=== PATIENT | male | born 1990 | race Caucasian/White ===

== ENCOUNTER 2016-11-21 20:23 | Inpatient (IN) | payer SELFPAY ==
[~2016-11-21] VITALS: Ht 165.1 cm; Wt 86.8 kg
[~2016-11-21 20:23] MED LIST: BENZ1TAB70 PO; ETOMIDATE 2 MG/ML 10 ML VIAL IV ONE; RISP2 PO; SUCCINYLCHOLINE CHLORIDE 20 MG/ML 10 ML VIAL IM ONE
[2016-11-21 21:02] LABS: GLUCOSE,POINT OF CARE 120 MG/DL (70-110)
[2016-11-21] MEDS ORDERED: SODIUM CHLORIDE 0.9% 1,000 ML IV ONE ×2 (21:15→22:45)
[2016-11-21 22:03] LABS: BASOPHILS % (AUTO) 0.4 % (0.0-2.0); EOSINOPHILS % (AUTO) 1.1 % (1.0-6.0); HEMATOCRIT 38.5 % (41-53); LYMPHOCYTES # (AUTO) 1.7 K/uL (1.0-4.8); LYMPHOCYTES % (AUTO) 28.6 % (22.0-44.0); MEAN CORPUSCULAR HEMOGLOBIN 30.3 pg (26.0-34.0); MEAN CORPUSCULAR HGB CONC 33.8 G/dL (31.0-37.0); MEAN CORPUSCULAR VOLUME 89 fL (80-100); MONOCYTES # (AUTO) 0.4 K/uL (0.1-1.0); MONOCYTES % (AUTO) 7.1 % (2.0-9.0); NEUTROPHILS # (AUTO) 3.8 K/uL (1.8-7.7); NEUTROPHILS % (AUTO) 62.8 % (40.0-70.0); PLATELET COUNT (AUTO) 183 K/uL (150-450); RED CELL DISTRIBUTION WIDTH 14.5 % (11.5-14.5); WHITE BLOOD COUNT (AUTO) 6.1 K/uL (4.5-11.0)
[2016-11-21 22:08] LABS: GLUCOSE, URINE (UA) NEGATIVE (NEGATIVE); KETONES,URINE NEGATIVE (NEGATIVE); LEUKOCYTE ESTERASE ,URINE NEGATIVE (NEGATIVE); OCCULT BLOOD,URINE NEGATIVE (NEGATIVE); PH,URINE 7.5 (5.0-8.0); PROTEIN,URINE TRACE (NEGATIVE)
[2016-11-21 22:12] LABS: ADD UA MICROSCOPIC NO; APPEARANCE,URINE SLIGHTLY CLOUDY (CLEAR)
[2016-11-21 22:14] LABS: ANION GAP 9 mmol/L (8-16); CALCIUM, TOTAL 8.5 mg/dL (8.8-10.5); CARBON DIOXIDE 25 mmol/L (22-29); CHLORIDE 109 mmol/L (98-107); CREATININE 0.82 mg/dL (0.60-1.30); GLOMERULAR FILTR. RATE CALC > 60 mL/min (>60); POTASSIUM 3.3 mmol/L (3.5-5.1); SODIUM SERUM 143 mmol/L (136-145); UREA NITROGEN, BLOOD 13 mg/dL (7-18)
[2016-11-21 22:19] LABS: ALANINE AMINOTRANSFERASE 23 U/L (12-78); ALBUMIN 3.5 g/dL (3.4-5.0); ASPARTATE AMINOTRANSFERASE 15 U/L (15-37); BILIRUBIN,TOTAL 0.4 mg/dL (0.1-1.0)
[2016-11-21 22:20] LABS: ACETAMINOPHEN < 2 mcg/mL (10-30)
[2016-11-21 22:21] LABS: AMMONIA 29 umol/L (11-32)
[2016-11-21 22:22] LABS: TROPONIN I < 0.02 ng/mL (0.00-0.05)
[2016-11-21 22:23] LABS: SALICYLATE < 2.8 mg/dL (2.8-20.0)
[2016-11-21] MEDS ORDERED: LORazepam 2 MG/ML VIAL IVP ONE ×2 (22:30→23:15)
[2016-11-21] MEDS ORDERED: RAPID SEQUENCE KIT [RSI] 1 EACH KIT ONE ×2 (22:36)
[2016-11-21] MEDS ORDERED: PHENYTOIN SODIUM 1,000 MG in SODIUM CHLORIDE 0.9% 150 ML IV ONE (22:45)
[2016-11-21] MEDS ORDERED: ETOMIDATE 2 MG/ML 10 ML VIAL IVP ONE (22:45)
[2016-11-21] MEDS ORDERED: SUCCINYLCHOLINE CHLORIDE 20 MG/ML 10 ML VIAL IVP ONE (22:45)
[2016-11-21] MEDS ORDERED: PROPOFOL 1000 MG/ISO-OSM 100 ML IV PRN (22:48)
[2016-11-21] MEDS ORDERED: 0.9% SODIUM CHLORIDE 10 ML SYRINGE IVP PRN (23:00)
[2016-11-21] MEDS ORDERED: ACETAMINOPHEN 325 MG TABLET PO PRN (23:00)
[2016-11-21] MEDS ORDERED: DiphenhydrAMINE HCL 50 MG/ML VIAL IVP ONE ×2 (23:00)
[2016-11-21] MEDS ORDERED: LevETIRAcetam 1,000 MG in DEXTROSE 5%-WATER 100 ML IV ONE (23:15)
[2016-11-21] MEDS ORDERED: MIDAZOLAM HCL 100 MG in DEXTROSE 5%-WATER 180 ML IV PRN (23:24)
[2016-11-21 23:29] LABS: ABG A-A DIFF O2 227.2 mmHg (10-20.0); ABG BASE EXCESS -2.2 mmol/L (-2.0-3.0); ABG OXYHEMOGLOBIN 95.6 % (94.0-100.0); ABG PCO2 35 mmHg (35-45); ABG PH 7.419 (7.350-7.450); TEMPERATURE, FAHRENHEIT, BG 97.3 FAHREN (96.0-98.6)
[2016-11-21 23:30] LABS: ALLEN TEST, BLOOD GAS POSITIVE
[2016-11-22] VITALS (10 sets, daily range): BP systolic 91–161; BP diastolic 47–78
[2016-11-22] MEDS ORDERED: OxyCODONE HCL/ACETAMINOPHEN 5-325 MG TABLET PO PRN
[2016-11-22] MEDS ORDERED: IPRATROPIUM BROMIDE 0.5 MG/2.5 ML NEB SOLUTION NEB PRN
[2016-11-22] MEDS ORDERED: ONDANSETRON HCL 4 MG/2 ML VIAL IVP PRN
[2016-11-22] MEDS ORDERED: ALBUTEROL SULFATE 2.5 MG/0.5 ML NEB SOLUTION NEB PRN
[2016-11-22] MEDS ORDERED: BISACODYL 10 MG RECTAL RECTAL SUPPOSITORY PR PRN
[2016-11-22] MEDS ORDERED: MAGNESIUM HYDROXIDE SUSPENSION 30 ML UDCUP PO PRN
[2016-11-22] MEDS: ACETAMINOPHEN 325 MG TABLET PO PRN ×2 (02:08→14:54)
[2016-11-22] MEDS: DEXTROSE 5%-0.45% SODIUM CHL 1,000 ML IV SCH ×2 (02:08→08:12)
[2016-11-22] MEDS ORDERED: MIDAZOLAM HCL 100 MG in DEXTROSE 5%-WATER 180 ML IV PRN (04:00)
[2016-11-22 05:08] LABS: ALANINE AMINOTRANSFERASE 21 U/L (12-78); ALBUMIN 3.2 g/dL (3.4-5.0); ANION GAP 11 mmol/L (8-16); ASPARTATE AMINOTRANSFERASE 23 U/L (15-37); BILIRUBIN,TOTAL 0.6 mg/dL (0.1-1.0); CALCIUM, TOTAL 7.9 mg/dL (8.8-10.5); CARBON DIOXIDE 25 mmol/L (22-29); CHLORIDE 109 mmol/L (98-107); CREATININE 0.88 mg/dL (0.60-1.30); GLOMERULAR FILTR. RATE CALC > 60 mL/min (>60); PHOSPHORUS 2.1 mg/dL (2.5-4.9); SODIUM SERUM 145 mmol/L (136-145); TOTAL PROTEIN, SERUM 6.5 g/dL (6.4-8.2); UREA NITROGEN, BLOOD 9 mg/dL (7-18)
[2016-11-22] MEDS ORDERED: VANCOMYCIN HCL 1 GM/D5% WATER 200 ML IV SCH (05:30)
[2016-11-22] MEDS ORDERED: VANCOMYCIN HCL 1 GM/D5% WATER 200 ML IV ONE (06:00)
[2016-11-22] MEDS: PROPOFOL 1000 MG/ISO-OSM 100 ML IV PRN ×6 (06:03→23:11)
[2016-11-22 06:14] LABS: BASOPHILS % (AUTO) 0.2 % (0.0-2.0); EOSINOPHILS % (AUTO) 0.4 % (1.0-6.0); HEMATOCRIT 37.7 % (41-53); HEMOGLOBIN 12.8 g/dL (13.5-17.5); LYMPHOCYTES % (AUTO) 15.9 % (22.0-44.0); MEAN CORPUSCULAR HEMOGLOBIN 30.2 pg (26.0-34.0); MEAN CORPUSCULAR HGB CONC 33.9 G/dL (31.0-37.0); MEAN CORPUSCULAR VOLUME 89 fL (80-100); MONOCYTES # (AUTO) 0.5 K/uL (0.1-1.0); MONOCYTES % (AUTO) 8.8 % (2.0-9.0); NEUTROPHILS # (AUTO) 4.6 K/uL (1.8-7.7); NEUTROPHILS % (AUTO) 74.7 % (40.0-70.0); PLATELET COUNT (AUTO) 138 K/uL (150-450); RED BLOOD CELL COUNT(AUTO) 4.23 MIL/uL (4.50-5.90); RED CELL DISTRIBUTION WIDTH 14.9 % (11.5-14.5); WHITE BLOOD COUNT (AUTO) 6.2 K/uL (4.5-11.0)
[2016-11-22] MEDS: PANTOPRAZOLE SODIUM 40 MG/VIAL IVP SCH (08:12)
[2016-11-22] MEDS: HEPARIN SODIUM,PORCINE 5,000 UNITS/ML VIAL SQ SCH ×2 (08:12→21:17)
[2016-11-22] MEDS ORDERED: VANCOMYCIN HCL 750 MG in DEXTROSE 5%-WATER 150 ML IV ONE ×2 (09:00→10:00)
[2016-11-22] MEDS ORDERED: POTASSIUM PHOS,M-BASIC-D-BASIC 30 MEQ in DEXTROSE 5%-WATER 150 ML IV ONE (11:00)
[2016-11-22] MEDS ORDERED: MAGNESIUM SULFATE 2 GM in DEXTROSE 5%-WATER 50 ML IV PRN (11:00)
[2016-11-22] MEDS ORDERED: MAGNESIUM SULFATE 4 GM/WATER 100 ML IV PRN (11:00)
[2016-11-22 11:17] LABS: ABG A-A DIFF O2 89.9 mmHg (10-20.0); ABG HCO3 22.8 mmol/L (22.0-26.0); ABG OXYHEMOGLOBIN 96.6 % (94.0-100.0); ABG PCO2 31 mmHg (35-45); TEMPERATURE, FAHRENHEIT, BG 97.5 FAHREN (96.0-98.6)
[2016-11-22 11:22] LABS: ALLEN TEST, BLOOD GAS Positive
[2016-11-22] MEDS ORDERED: SODIUM CHLORIDE 0.9% 250 ML IV ONE (11:51)
[2016-11-22] MEDS: MAGNESIUM OXIDE 400 MG TABLET PO PRN ×3 (11:53→21:17)
[2016-11-22] MEDS: MORPHINE SULFATE 2 MG/ML SYRINGE IVP PRN (13:56)
[2016-11-22] MEDS: AMPICILLIN SODIUM/SULBACTAM NA 3 GM in SODIUM CHLORIDE 0.9% 100 ML IV SCH ×2 (13:56→17:59)
[2016-11-22] MEDS: AZITHROMYCIN 500 MG/NS 250 ML IV SCH (14:54)
[2016-11-22] MEDS: VANCOMYCIN HCL 1.5 GM in DEXTROSE 5%-WATER 250 ML IV SCH (16:34)
[2016-11-22] MEDS: MetroNIDAZOLE 500 MG/NACL 100 ML IV SCH (22:36)
[2016-11-23] VITALS (8 sets, daily range): BP systolic 90–199; BP diastolic 48–62
[2016-11-23] MEDS: CefTRIAXone SODIUM 2 GM in DEXTROSE 5%-WATER 50 ML IV SCH ×2 (00:29→13:32)
[2016-11-23] MEDS: VANCOMYCIN HCL 1.5 GM in DEXTROSE 5%-WATER 250 ML IV SCH ×3 (00:30→16:05)
[2016-11-23] MEDS: PROPOFOL 1000 MG/ISO-OSM 100 ML IV PRN ×7 (01:40→22:00)
[2016-11-23] MEDS: ACETAMINOPHEN 325 MG TABLET PO PRN ×2 (02:06→20:21)
[2016-11-23] MEDS: DEXTROSE 5%-0.45% SODIUM CHL 1,000 ML IV SCH ×2 (04:04→13:50)
[2016-11-23 04:54] LABS: BASOPHILS % (AUTO) 0.2 % (0.0-2.0); EOSINOPHILS % (AUTO) 1.2 % (1.0-6.0); HEMATOCRIT 35.2 % (41-53); HEMOGLOBIN 11.9 g/dL (13.5-17.5); LYMPHOCYTES # (AUTO) 0.9 K/uL (1.0-4.8); MEAN CORPUSCULAR HEMOGLOBIN 30.2 pg (26.0-34.0); MEAN CORPUSCULAR HGB CONC 33.7 G/dL (31.0-37.0); MEAN CORPUSCULAR VOLUME 90 fL (80-100); MONOCYTES # (AUTO) 0.4 K/uL (0.1-1.0); MONOCYTES % (AUTO) 4.8 % (2.0-9.0); NEUTROPHILS # (AUTO) 6.9 K/uL (1.8-7.7); NEUTROPHILS % (AUTO) 82.8 % (40.0-70.0); PLATELET COUNT (AUTO) 151 K/uL (150-450); RED BLOOD CELL COUNT(AUTO) 3.92 MIL/uL (4.50-5.90); RED CELL DISTRIBUTION WIDTH 14.5 % (11.5-14.5); WHITE BLOOD COUNT (AUTO) 8.4 K/uL (4.5-11.0)
[2016-11-23] MEDS: MetroNIDAZOLE 500 MG/NACL 100 ML IV SCH ×3 (05:15→22:45)
[2016-11-23 05:17] LABS: ALANINE AMINOTRANSFERASE 14 U/L (12-78); ALBUMIN 2.5 g/dL (3.4-5.0); ANION GAP 8 mmol/L (8-16); ASPARTATE AMINOTRANSFERASE 18 U/L (15-37); BILIRUBIN,TOTAL 0.4 mg/dL (0.1-1.0); CALCIUM, TOTAL 7.5 mg/dL (8.8-10.5); CARBON DIOXIDE 25 mmol/L (22-29); CHLORIDE 108 mmol/L (98-107); CREATININE 0.73 mg/dL (0.60-1.30); GLOMERULAR FILTR. RATE CALC > 60 mL/min (>60); PHOSPHORUS 2.8 mg/dL (2.5-4.9); SODIUM SERUM 141 mmol/L (136-145); TOTAL PROTEIN, SERUM 5.8 g/dL (6.4-8.2); UREA NITROGEN, BLOOD 6 mg/dL (7-18)
[2016-11-23 05:21] LABS: POTASSIUM 2.9 mmol/L (3.5-5.1)
[2016-11-23 05:24] LABS: PROCALCITONIN (PCT) 0.22 ng/mL (<0.50)
[2016-11-23] MEDS: OXYGEN THERAPY IH SCH ×2 (08:00→20:20)
[2016-11-23] MEDS: HEPARIN SODIUM,PORCINE 5,000 UNITS/ML VIAL SQ SCH ×2 (08:31→20:21)
[2016-11-23] MEDS: PANTOPRAZOLE SODIUM 40 MG/VIAL IVP SCH (08:32)
[2016-11-23] MEDS: POTASSIUM CHLORIDE 20 MEQ ER TABLET PO PRN (08:32)
[2016-11-23 09:45] LABS: ABG A-A DIFF O2 110.8 mmHg (10-20.0); ABG PCO2 31 mmHg (35-45); ABG PH 7.435 (7.350-7.450); TEMPERATURE, FAHRENHEIT, BG 98.6 FAHREN (96.0-98.6)
[2016-11-23 09:47] LABS: ALLEN TEST, BLOOD GAS Positive
[2016-11-23] MEDS: LevETIRAcetam 500 MG in DEXTROSE 5%-WATER 100 ML IV SCH ×2 (11:40→21:48)
[2016-11-23] MEDS: ACYCLOVIR 800 MG in DEXTROSE 5%-WATER 150 ML IV SCH ×2 (11:58→18:22)
[2016-11-23] MEDS: AZITHROMYCIN 500 MG/NS 250 ML IV SCH (13:49)
[2016-11-23] MEDS ORDERED: LIDOCAINE HCL/PF 1% 5 ML VIAL ONE (16:31)
[2016-11-23] MEDS: POTASSIUM CHL 10 MEQ/WATER 50 ML IV PRN ×2 (19:49→21:12)
[2016-11-23 20:15] LABS: GLUCOSE, CSF 63 mg/dL (50-80); TOTAL PROTEIN, CSF 29 mg/dL (15-45)
[2016-11-23] MEDS ORDERED: SODIUM CHLORIDE 0.9% 250 ML IV ONE (20:18)
[2016-11-23 21:28] LABS: APPEARANCE,CSF CLEAR (CLEAR); COLOR,CSF COLORLESS (COLORLESS)
[2016-11-24] VITALS: BP 103/51
[2016-11-24] MEDS: POTASSIUM CHL 10 MEQ/WATER 50 ML IV PRN (00:07)
[2016-11-24] MEDS: DEXTROSE 5%-0.45% SODIUM CHL 1,000 ML IV SCH ×3 (00:07→20:38)
[2016-11-24] MEDS: PROPOFOL 1000 MG/ISO-OSM 100 ML IV PRN ×6 (00:45→20:45)
[2016-11-24 04:00] VITALS: BP 114/79
[2016-11-24] MEDS: MetroNIDAZOLE 500 MG/NACL 100 ML IV SCH ×3 (05:12→22:47)
[2016-11-24 05:32] LABS: ANION GAP 9 mmol/L (8-16); CALCIUM, TOTAL 8.2 mg/dL (8.8-10.5); CARBON DIOXIDE 23 mmol/L (22-29); CHLORIDE 111 mmol/L (98-107); CREATININE 0.84 mg/dL (0.60-1.30); GLOMERULAR FILTR. RATE CALC > 60 mL/min (>60); POTASSIUM 4.2 mmol/L (3.5-5.1); SODIUM SERUM 143 mmol/L (136-145); UREA NITROGEN, BLOOD 4 mg/dL (7-18)
[2016-11-24 05:39] LABS: BASOPHILS % (AUTO) 0.2 % (0.0-2.0); EOSINOPHILS % (AUTO) 0.7 % (1.0-6.0); HEMATOCRIT 37.9 % (41-53); HEMOGLOBIN 12.8 g/dL (13.5-17.5); LYMPHOCYTES # (AUTO) 2.7 K/uL (1.0-4.8); LYMPHOCYTES % (AUTO) 25.5 % (22.0-44.0); MEAN CORPUSCULAR HEMOGLOBIN 30.4 pg (26.0-34.0); MEAN CORPUSCULAR HGB CONC 33.8 G/dL (31.0-37.0); MEAN CORPUSCULAR VOLUME 90 fL (80-100); MONOCYTES # (AUTO) 0.8 K/uL (0.1-1.0); MONOCYTES % (AUTO) 7.4 % (2.0-9.0); NEUTROPHILS # (AUTO) 6.9 K/uL (1.8-7.7); NEUTROPHILS % (AUTO) 66.2 % (40.0-70.0); PLATELET COUNT (AUTO) 145 K/uL (150-450); RED BLOOD CELL COUNT(AUTO) 4.22 MIL/uL (4.50-5.90); RED CELL DISTRIBUTION WIDTH 15.1 % (11.5-14.5); WHITE BLOOD COUNT (AUTO) 10.4 K/uL (4.5-11.0)
[2016-11-24 08:00] VITALS: BP 106/66
[2016-11-24] MEDS ORDERED: VANCOMYCIN HCL 1.5 GM in DEXTROSE 5%-WATER 250 ML IV SCH (08:00)
[2016-11-24] MEDS: PANTOPRAZOLE SODIUM 40 MG/VIAL IVP SCH (08:36)
[2016-11-24] MEDS: HEPARIN SODIUM,PORCINE 5,000 UNITS/ML VIAL SQ SCH ×2 (08:36→20:38)
[2016-11-24] MEDS: LevETIRAcetam 500 MG in DEXTROSE 5%-WATER 100 ML IV SCH ×2 (08:37→20:39)
[2016-11-24] MEDS: ACETAMINOPHEN 325 MG TABLET PO PRN ×2 (08:37→20:41)
[2016-11-24 09:14] LABS: ABG A-A DIFF O2 64.7 mmHg (10-20.0); ABG BASE EXCESS -3.4 mmol/L (-2.0-3.0); ABG HCO3 22.5 mmol/L (22.0-26.0); ABG PCO2 31 mmHg (35-45); ABG PH 7.437 (7.350-7.450); TEMPERATURE, FAHRENHEIT, BG 100.4 FAHREN (96.0-98.6)
[2016-11-24 09:15] LABS: ALLEN TEST, BLOOD GAS Positive
[2016-11-24 11:09] LABS: ORGANISM ID Not indicated.
[2016-11-24 12:00] VITALS: BP 132/77
[2016-11-24] MEDS: CefTRIAXone 1 GM/DEXTROSE 50 ML IV SCH (12:06)
[2016-11-24] MEDS: AZITHROMYCIN 500 MG/NS 250 ML IV SCH (12:49)
[2016-11-24] MEDS: VANCOMYCIN HCL 1.25 GM in DEXTROSE 5%-WATER 250 ML IV SCH (15:30)
[2016-11-24 16:00] VITALS: BP 106/58
[2016-11-24 20:00] VITALS: BP 122/69
[2016-11-24] MEDS ORDERED: SODIUM CHLORIDE 0.9% 250 ML IV ONE (20:06)
[2016-11-24] MEDS: OXYGEN THERAPY IH SCH (20:37)
[2016-11-24] MEDS ORDERED: BARIUM SULFATE 0.1% SUSPENSION 450 ML BOTTLE ONE (21:57)
[2016-11-24] MEDS ORDERED: SODIUM CHLORIDE 0.9% 100 ML ONE (21:58)
[2016-11-24] MEDS ORDERED: IOVERSOL 320 MG/ML 100 ML VIAL ONE (21:58)
[2016-11-25] VITALS (8 sets, daily range): BP systolic 103–146; BP diastolic 50–95
[2016-11-25] MEDS: PROPOFOL 1000 MG/ISO-OSM 100 ML IV PRN ×4 (00:55→19:45)
[2016-11-25] MEDS: VANCOMYCIN HCL 1.25 GM in DEXTROSE 5%-WATER 250 ML IV SCH ×3 (00:55→17:40)
[2016-11-25] MEDS: MetroNIDAZOLE 500 MG/NACL 100 ML IV SCH ×3 (05:10→22:30)
[2016-11-25] MEDS: ACETAMINOPHEN 325 MG TABLET PO PRN (05:11)
[2016-11-25] MEDS: DEXTROSE 5%-0.45% SODIUM CHL 1,000 ML IV SCH ×2 (05:36→18:42)
[2016-11-25 06:23] LABS: ANION GAP 10 mmol/L (8-16); CALCIUM, TOTAL 8.7 mg/dL (8.8-10.5); CARBON DIOXIDE 23 mmol/L (22-29); CHLORIDE 109 mmol/L (98-107); GLOMERULAR FILTR. RATE CALC > 60 mL/min (>60); POTASSIUM 3.1 mmol/L (3.5-5.1); SODIUM SERUM 142 mmol/L (136-145); UREA NITROGEN, BLOOD 3 mg/dL (7-18)
[2016-11-25] MEDS: POTASSIUM CHLORIDE 20 MEQ ER TABLET PO PRN (07:00)
[2016-11-25] MEDS: OXYGEN THERAPY IH SCH ×2 (08:15→20:07)
[2016-11-25 08:39] LABS: ABG BASE EXCESS -3.8 mmol/L (-2.0-3.0); ABG HCO3 21.8 mmol/L (22.0-26.0); ABG OXYHEMOGLOBIN 95.7 % (94.0-100.0); ABG PCO2 37 mmHg (35-45); ABG PH 7.378 (7.350-7.450); TEMPERATURE, FAHRENHEIT, BG 98.6 FAHREN (96.0-98.6)
[2016-11-25 08:42] LABS: ALLEN TEST, BLOOD GAS Positive
[2016-11-25] MEDS: PANTOPRAZOLE SODIUM 40 MG/VIAL IVP SCH (09:51)
[2016-11-25] MEDS: HEPARIN SODIUM,PORCINE 5,000 UNITS/ML VIAL SQ SCH ×2 (09:51→22:29)
[2016-11-25] MEDS: LevETIRAcetam 500 MG in DEXTROSE 5%-WATER 100 ML IV SCH ×2 (09:54→22:29)
[2016-11-25] MEDS: CefTRIAXone 1 GM/DEXTROSE 50 ML IV SCH (12:25)
[2016-11-25] MEDS: AZITHROMYCIN 500 MG/NS 250 ML IV SCH (12:25)
[2016-11-25] MEDS ORDERED: IOVERSOL 350 MG/ML 150 ML VIAL ONE (14:18)
[2016-11-25] MEDS ORDERED: SODIUM CHLORIDE 0.9% 100 ML ONE (14:18)
[2016-11-25] MEDS ORDERED: LORazepam 2 MG/ML VIAL IM ONE (14:30)
[2016-11-25] MEDS: MORPHINE SULFATE 2 MG/ML SYRINGE IVP PRN (19:57)
[2016-11-25] MEDS: LEVOFLOXACIN 750 MG/D5% WATER 150 ML IV SCH (20:09)
[2016-11-25] MEDS: POTASSIUM CHL 10 MEQ/WATER 50 ML IV PRN (23:36)
[2016-11-26] VITALS (8 sets, daily range): BP systolic 90–127; BP diastolic 41–73
[2016-11-26] MEDS: PROPOFOL 1000 MG/ISO-OSM 100 ML IV PRN ×3 (00:22→08:46)
[2016-11-26] MEDS: POTASSIUM CHL 10 MEQ/WATER 50 ML IV PRN ×3 (00:44→23:51)
[2016-11-26] MEDS: VANCOMYCIN HCL 1.25 GM in DEXTROSE 5%-WATER 250 ML IV SCH ×3 (00:47→15:57)
[2016-11-26] MEDS ORDERED: SODIUM CHLORIDE 0.9% 250 ML IV ONE ×3 (01:02→23:46)
[2016-11-26] MEDS: DEXTROSE 5%-0.45% SODIUM CHL 1,000 ML IV SCH (05:21)
[2016-11-26 05:29] LABS: BASOPHILS % (AUTO) 0.3 % (0.0-2.0); EOSINOPHILS % (AUTO) 3.9 % (1.0-6.0); HEMATOCRIT 33.1 % (41-53); HEMOGLOBIN 11.4 g/dL (13.5-17.5); LYMPHOCYTES # (AUTO) 1.6 K/uL (1.0-4.8); LYMPHOCYTES % (AUTO) 28.3 % (22.0-44.0); MEAN CORPUSCULAR HEMOGLOBIN 30.4 pg (26.0-34.0); MEAN CORPUSCULAR HGB CONC 34.4 G/dL (31.0-37.0); MEAN CORPUSCULAR VOLUME 88 fL (80-100); MONOCYTES # (AUTO) 0.6 K/uL (0.1-1.0); MONOCYTES % (AUTO) 11.1 % (2.0-9.0); NEUTROPHILS # (AUTO) 3.1 K/uL (1.8-7.7); NEUTROPHILS % (AUTO) 56.4 % (40.0-70.0); PLATELET COUNT (AUTO) 166 K/uL (150-450); RED BLOOD CELL COUNT(AUTO) 3.75 MIL/uL (4.50-5.90); RED CELL DISTRIBUTION WIDTH 14.2 % (11.5-14.5); WHITE BLOOD COUNT (AUTO) 5.5 K/uL (4.5-11.0)
[2016-11-26 06:11] LABS: ANION GAP 10 mmol/L (8-16); CALCIUM, TOTAL 8.2 mg/dL (8.8-10.5); CARBON DIOXIDE 22 mmol/L (22-29); CHLORIDE 108 mmol/L (98-107); CREATININE 0.67 mg/dL (0.60-1.30); GLOMERULAR FILTR. RATE CALC > 60 mL/min (>60); SODIUM SERUM 140 mmol/L (136-145); UREA NITROGEN, BLOOD 5 mg/dL (7-18)
[2016-11-26] MEDS: MetroNIDAZOLE 500 MG/NACL 100 ML IV SCH ×2 (06:12→14:22)
[2016-11-26] MEDS: MORPHINE SULFATE 2 MG/ML SYRINGE IVP PRN (06:13)
[2016-11-26] MEDS: HEPARIN SODIUM,PORCINE 5,000 UNITS/ML VIAL SQ SCH ×2 (08:46→20:31)
[2016-11-26] MEDS: OXYGEN THERAPY IH SCH ×2 (08:47→20:31)
[2016-11-26] MEDS: PANTOPRAZOLE SODIUM 40 MG/VIAL IVP SCH (08:48)
[2016-11-26 09:06] LABS: ABG A-A DIFF O2 77.5 mmHg (10-20.0); ABG BASE EXCESS 0.4 mmol/L (-2.0-3.0); ABG HCO3 25.2 mmol/L (22.0-26.0); ABG OXYHEMOGLOBIN 96.4 % (94.0-100.0); ABG PCO2 34 mmHg (35-45); ABG PH 7.474 (7.350-7.450)
[2016-11-26 09:08] LABS: ALLEN TEST, BLOOD GAS Positive
[2016-11-26] MEDS: LevETIRAcetam 500 MG in DEXTROSE 5%-WATER 100 ML IV SCH ×2 (09:17→22:53)
[2016-11-26] MEDS: POTASSIUM CHLORIDE 20 MEQ ER TABLET PO PRN (09:18)
[2016-11-26] MEDS: CefTRIAXone 1 GM/DEXTROSE 50 ML IV SCH (14:22)
[2016-11-26 17:10] LABS: ABG A-A DIFF O2 88.3 mmHg (10-20.0); ABG HCO3 24.7 mmol/L (22.0-26.0); ABG OXYHEMOGLOBIN 95.3 % (94.0-100.0); ABG PCO2 37 mmHg (35-45); ABG PH 7.435 (7.350-7.450); ALLEN TEST, BLOOD GAS Positive
[2016-11-26 19:13] LABS: ABG A-A DIFF O2 71.2 mmHg (10-20.0); ABG BASE EXCESS -0.2 mmol/L (-2.0-3.0); ABG HCO3 24.5 mmol/L (22.0-26.0); ABG OXYHEMOGLOBIN 96.5 % (94.0-100.0); ABG PCO2 36 mmHg (35-45); ABG PH 7.438 (7.350-7.450); TEMPERATURE, FAHRENHEIT, BG 97.9 FAHREN (96.0-98.6)
[2016-11-26 19:14] LABS: ALLEN TEST, BLOOD GAS Positive
[2016-11-26] MEDS: LEVOFLOXACIN 750 MG/D5% WATER 150 ML IV SCH (20:31)
[2016-11-26 23:09] LABS: HERPES SIMPLEX VIRUS-1 BY PCR Negative (Negative); HERPES SIMPLEX VIRUS-2 BY PCR Negative (Negative)
[2016-11-27] VITALS (8 sets, daily range): BP systolic 112–131; BP diastolic 58–72
[2016-11-27] MEDS: POTASSIUM CHL 10 MEQ/WATER 50 ML IV PRN ×2 (00:35→02:34)
[2016-11-27] MEDS: HEPARIN SODIUM,PORCINE 5,000 UNITS/ML VIAL SQ SCH ×2 (09:00→20:39)
[2016-11-27] MEDS: PANTOPRAZOLE SODIUM 40 MG/VIAL IVP SCH (09:00)
[2016-11-27] MEDS: LevETIRAcetam 500 MG in DEXTROSE 5%-WATER 100 ML IV SCH ×2 (09:15→20:40)
[2016-11-27] MEDS: CefTRIAXone 1 GM/DEXTROSE 50 ML IV SCH (13:00)
[2016-11-27] MEDS: POTASSIUM CHLORIDE 20 MEQ ER TABLET PO PRN (16:16)
[2016-11-27] MEDS: OXYGEN THERAPY IH SCH (20:00)
[2016-11-27] MEDS ORDERED: SODIUM CHLORIDE 0.9% 500 ML IV ONE (20:31)
[2016-11-27] MEDS: LEVOFLOXACIN 750 MG/D5% WATER 150 ML IV SCH (20:38)
[2016-11-28 03:30] VITALS: BP 103/62
[2016-11-28 07:50] VITALS: BP 112/54
[2016-11-28] MEDS: OXYGEN THERAPY IH SCH (08:00)
[2016-11-28] MEDS: PANTOPRAZOLE SODIUM 40 MG/VIAL IVP SCH (08:16)
[2016-11-28] MEDS: LevETIRAcetam 500 MG in DEXTROSE 5%-WATER 100 ML IV SCH (08:17)
[2016-11-28] MEDS: HEPARIN SODIUM,PORCINE 5,000 UNITS/ML VIAL SQ SCH (08:17)
[2016-11-28 11:30] VITALS: BP 123/65
== END 2016-11-28 13:24 | disposition left against medical advice (07) | DRG 870 ==
LOC: EMS 20:25 → ICU 23:10 → 6N 11-27 17:00
PROVIDERS: ADMIT Internal Medicine; ATTEND Internal Medicine
PROC: 5A1955Z Respiratory Ventilation, Greater than 96 Consecutive Hours (ICD-10-PCS; 2016-11-21)
PROC: 0BH17EZ Insertion of Endotracheal Airway into Trachea, Via Natural or Artificial Opening (ICD-10-PCS; 2016-11-21)
PROC: 009U3ZX Drainage of Spinal Canal, Percutaneous Approach, Diagnostic (ICD-10-PCS; principal; 2016-11-23)
DX: A40.9 Streptococcal sepsis, unspecified (principal); J96.01 Acute respiratory failure with hypoxia; G92 Toxic encephalopathy; J15.4 Pneumonia due to other streptococci; F31.9 Bipolar disorder, unspecified; E87.6 Hypokalemia; F20.9 Schizophrenia, unspecified; E66.9 Obesity, unspecified; Z79.899 Other long term (current) drug therapy; Z59.0 Homelessness; Z78.1 Physical restraint status; Z68.31 Body mass index [BMI] 31.0-31.9, adult; Z53.21 Procedure and treatment not carried out due to patient leaving prior to being seen by health care provider
CPT/HCPCS: 70450; 71250; 74177; 82805; 82945; 82962; 83735; 84100; 84132; 84145; 84157; 86403; 86694; 86735; 86765; 86787; 86788; 86789; 87040; 87070; 87081; 87086; 87147; 87205; 87210; 87449; 87529; 87899; 89051; 93005; 94002; 94003; 95816; 96361; 96365; 96375; 96376; 99291; C9113; G0480; G0481; J0133; J0295; J0330; J0456; J0696; J0712; J1165; J1200; J1644; J1956; J2060; J2250; J2270; J2704; J3370; J3480; J3490; J7030; J7040; J7050; J7060

== ENCOUNTER 2016-12-06 20:08 | Emergency (ER) | payer MEDICAID, OTHER ==
[~2016-12-06] VITALS: Ht 167.6 cm; Wt 72.7 kg
[~2016-12-06 20:08] MED LIST changes: -ETOMIDATE 2 MG/ML 10 ML VIAL IV ONE; -SUCCINYLCHOLINE CHLORIDE 20 MG/ML 10 ML VIAL IM ONE
[2016-12-06 21:41] LABS: BASOPHILS # (AUTO) 0.03 K/uL (0.00-0.20); BASOPHILS % (AUTO) 0.5 % (0.0-2.0); EOSINOPHILS # (AUTO) 0.12 K/uL (0.00-0.70); EOSINOPHILS % (AUTO) 1.86 % (1.0-6.0); HEMATOCRIT 38.3 % (41-53); HEMOGLOBIN 12.9 g/dL (13.5-17.5); LYMPHOCYTES # (AUTO) 1.8 K/uL (1.0-4.8); LYMPHOCYTES % (AUTO) 27.4 % (22.0-44.0); MEAN CORPUSCULAR HEMOGLOBIN 29.9 pg (26.0-34.0); MEAN CORPUSCULAR HGB CONC 33.7 G/dL (31.0-37.0); MEAN CORPUSCULAR VOLUME 89 fL (80-100); MONOCYTES # (AUTO) 0.4 K/uL (0.1-1.0); MONOCYTES % (AUTO) 6.7 % (2.0-9.0); NEUTROPHILS # (AUTO) 4.2 K/uL (1.8-7.7); NEUTROPHILS % (AUTO) 63.5 % (40.0-70.0); PLATELET COUNT (AUTO) 271 K/uL (150-450); RED BLOOD CELL COUNT(AUTO) 4.33 MIL/uL (4.50-5.90); RED CELL DISTRIBUTION WIDTH 14.7 % (11.5-14.5)
[2016-12-06 21:50] LABS: ANION GAP 11 mmol/L (8-16); CALCIUM, TOTAL 8.6 mg/dL (8.8-10.5); CARBON DIOXIDE 24 mmol/L (22-29); CHLORIDE 108 mmol/L (98-107); CREATININE 0.77 mg/dL (0.60-1.30); GLOMERULAR FILTR. RATE CALC > 60 mL/min (>60); GLUCOSE,RANDOM 92 mg/dL (70-110); POTASSIUM 3.6 mmol/L (3.5-5.1); SODIUM SERUM 143 mmol/L (136-145); UREA NITROGEN, BLOOD 12 mg/dL (7-18)
[2016-12-06 21:56] LABS: ALANINE AMINOTRANSFERASE 38 U/L (12-78); ALBUMIN 3.5 g/dL (3.4-5.0); ALKALINE PHOSPHATASE 70 U/L (46-116); ASPARTATE AMINOTRANSFERASE 17 U/L (15-37); BILIRUBIN,TOTAL 0.3 mg/dL (0.1-1.0); TOTAL PROTEIN, SERUM 7.1 g/dL (6.4-8.2)
[2016-12-06 22:48] VITALS: BP 122/77
[2016-12-12] MEDS ORDERED: OLAN5TAB2 PO (16:45)
== END 2016-12-06 22:53 | disposition home or self-care (01) ==
LOC: EMS 20:11
DX: F25.9 Schizoaffective disorder, unspecified (principal); F31.9 Bipolar disorder, unspecified
CPT/HCPCS: 36415; 80053; 85025; 99285; G0480

== ENCOUNTER 2016-12-14 20:04 | Emergency (ER) | payer MEDICAID, OTHER ==
[~2016-12-14] VITALS: Ht 170.2 cm; Wt 72.7 kg
[~2016-12-14 20:04] MED LIST changes: -BENZ1TAB70 PO; +OLAN5TAB2 PO; -RISP2 PO
[2016-12-14 21:27] LABS: BASOPHILS # (AUTO) 0.04 K/uL (0.00-0.20); BASOPHILS % (AUTO) 0.8 % (0.0-2.0); EOSINOPHILS # (AUTO) 0.23 K/uL (0.00-0.70); HEMATOCRIT 40.1 % (41-53); HEMOGLOBIN 13.7 g/dL (13.5-17.5); LYMPHOCYTES # (AUTO) 2.5 K/uL (1.0-4.8); LYMPHOCYTES % (AUTO) 47.8 % (22.0-44.0); MEAN CORPUSCULAR HEMOGLOBIN 30.4 pg (26.0-34.0); MEAN CORPUSCULAR HGB CONC 34.2 G/dL (31.0-37.0); MEAN CORPUSCULAR VOLUME 89 fL (80-100); MONOCYTES # (AUTO) 0.6 K/uL (0.1-1.0); MONOCYTES % (AUTO) 10.7 % (2.0-9.0); NEUTROPHILS # (AUTO) 1.9 K/uL (1.8-7.7); NEUTROPHILS % (AUTO) 36.4 % (40.0-70.0); PLATELET COUNT (AUTO) 200 K/uL (150-450); RED BLOOD CELL COUNT(AUTO) 4.51 MIL/uL (4.50-5.90); RED CELL DISTRIBUTION WIDTH 15.7 % (11.5-14.5); WHITE BLOOD COUNT (AUTO) 5.3 K/uL (4.5-11.0)
[2016-12-14 21:51] LABS: ANION GAP 10 mmol/L (8-16); CALCIUM, TOTAL 8.7 mg/dL (8.8-10.5); CARBON DIOXIDE 26 mmol/L (22-29); CHLORIDE 100 mmol/L (98-107); CREATININE 1.15 mg/dL (0.60-1.30); GLOMERULAR FILTR. RATE CALC > 60 mL/min (>60); POTASSIUM 4.2 mmol/L (3.5-5.1); SODIUM SERUM 136 mmol/L (136-145); UREA NITROGEN, BLOOD 15 mg/dL (7-18)
[2016-12-14 21:57] LABS: ALANINE AMINOTRANSFERASE 43 U/L (12-78); ALBUMIN 3.6 g/dL (3.4-5.0); ASPARTATE AMINOTRANSFERASE 26 U/L (15-37); BILIRUBIN,TOTAL 0.3 mg/dL (0.1-1.0); TOTAL PROTEIN, SERUM 7.4 g/dL (6.4-8.2)
[2016-12-14] MEDS ORDERED: HALOPERIDOL 5 MG TABLET PO ONE (22:15)
[2016-12-14 23:35] VITALS: BP 121/68
== END 2016-12-14 23:37 | disposition home or self-care (01) ==
LOC: EMS 20:05
DX: F25.9 Schizoaffective disorder, unspecified (principal); F31.9 Bipolar disorder, unspecified; Z59.0 Homelessness
CPT/HCPCS: 36415; 80053; 85025; 99285; G0480

== ENCOUNTER 2016-12-22 18:31 | Inpatient (IN) | payer MEDICAID, OTHER ==
[~2016-12-22] VITALS: Ht 167.6 cm; Wt 81.7 kg
[2016-12-22] MEDS ORDERED: DiphenhydrAMINE HCL 50 MG/ML VIAL ONE (18:43)
[2016-12-22] MEDS ORDERED: HALOPERIDOL LACTATE 5 MG/ML VIAL ONE (18:43)
[2016-12-22] MEDS ORDERED: LORazepam 2 MG/ML VIAL ONE (18:43)
[2016-12-22] MEDS ORDERED: HALOPERIDOL LACTATE 5 MG/ML VIAL IM ONE (18:45)
[2016-12-22] MEDS ORDERED: LORazepam 2 MG/ML VIAL IM ONE (18:45)
[2016-12-22] MEDS ORDERED: DiphenhydrAMINE HCL 50 MG/ML VIAL IM ONE (18:45)
[2016-12-22 18:48] LABS: BASOPHILS % (AUTO) 0.8 % (0.0-2.0); EOSINOPHILS % (AUTO) 4.8 % (1.0-6.0); HEMATOCRIT 43.6 % (41-53); HEMOGLOBIN 14.9 g/dL (13.5-17.5); LYMPHOCYTES # (AUTO) 2.5 K/uL (1.0-4.8); LYMPHOCYTES % (AUTO) 43.5 % (22.0-44.0); MEAN CORPUSCULAR HEMOGLOBIN 30.4 pg (26.0-34.0); MEAN CORPUSCULAR VOLUME 89 fL (80-100); MONOCYTES # (AUTO) 0.6 K/uL (0.1-1.0); MONOCYTES % (AUTO) 9.9 % (2.0-9.0); NEUTROPHILS # (AUTO) 2.4 K/uL (1.8-7.7); PLATELET COUNT (AUTO) 154 K/uL (150-450); RED BLOOD CELL COUNT(AUTO) 4.88 MIL/uL (4.50-5.90); RED CELL DISTRIBUTION WIDTH 15.3 % (11.5-14.5); WHITE BLOOD COUNT (AUTO) 5.8 K/uL (4.5-11.0)
[2016-12-22 19:00] LABS: ANION GAP 12 mmol/L (8-16); CALCIUM, TOTAL 8.7 mg/dL (8.8-10.5); CARBON DIOXIDE 22 mmol/L (22-29); CHLORIDE 106 mmol/L (98-107); CREATININE 0.92 mg/dL (0.60-1.30); GLOMERULAR FILTR. RATE CALC > 60 mL/min (>60); POTASSIUM 3.5 mmol/L (3.5-5.1); SODIUM SERUM 140 mmol/L (136-145); UREA NITROGEN, BLOOD 10 mg/dL (7-18)
[2016-12-22 19:03] LABS: ALANINE AMINOTRANSFERASE 24 U/L (12-78); ALBUMIN 4.1 g/dL (3.4-5.0); ASPARTATE AMINOTRANSFERASE 22 U/L (15-37); BILIRUBIN,TOTAL 0.6 mg/dL (0.1-1.0); TOTAL PROTEIN, SERUM 7.9 g/dL (6.4-8.2)
[2016-12-22] MEDS ORDERED: ZOLPIDEM TARTRATE 10 MG TABLET PO PRN (21:15)
[2016-12-22 21:47] LABS: CHOL/HDL RATIO 2.5 (4.2-7.3)
[2016-12-22 22:35] LABS: APPEARANCE,URINE CLEAR (CLEAR); GLUCOSE, URINE (UA) NEGATIVE (NEGATIVE); KETONES,URINE NEGATIVE (NEGATIVE); LEUKOCYTE ESTERASE ,URINE NEGATIVE (NEGATIVE); OCCULT BLOOD,URINE NEGATIVE (NEGATIVE); PH,URINE 5.5 (5.0-8.0); PROTEIN,URINE NEGATIVE (NEGATIVE)
[2016-12-22 22:36] LABS: ADD UA MICROSCOPIC NO
[2016-12-23] MEDS: HALOPERIDOL 5 MG TABLET PO PRN ×2 (04:20→15:08)
[2016-12-23] MEDS: LORazepam 2 MG TABLET PO PRN ×2 (04:20→15:08)
[2016-12-23 21:39] VITALS: BP 127/79
[2016-12-24 16:49] VITALS: BP 124/77
[2016-12-25 08:35] VITALS: BP 116/83
[2016-12-25] MEDS: OLANZapine 5 MG TABLET PO SCH (11:08)
[2016-12-25] MEDS: LORazepam 2 MG TABLET PO PRN (12:03)
[2016-12-25] MEDS: HALOPERIDOL 5 MG TABLET PO PRN (12:04)
[2016-12-25 16:30] VITALS: BP 149/72
[2016-12-25] MEDS ORDERED: OLANZapine 5 MG TABLET PO SCH (21:00)
[2016-12-25] MEDS: OLANZapine 10 MG TABLET PO SCH (21:34)
[2016-12-26] MEDS: HALOPERIDOL 5 MG TABLET PO PRN (07:52)
[2016-12-26] MEDS: LORazepam 2 MG TABLET PO PRN (07:59)
[2016-12-26] MEDS: OLANZapine 5 MG TABLET PO SCH (08:05)
[2016-12-26 08:45] VITALS: BP 135/95
[2016-12-26] MEDS: OLANZapine 10 MG TABLET PO SCH (20:20)
[2016-12-26 21:16] VITALS: BP 118/95
[2016-12-27] MEDS: OLANZapine 5 MG TABLET PO SCH (09:04)
[2016-12-27 11:08] VITALS: BP 126/76
[2016-12-27] MEDS: OLANZapine 10 MG TABLET PO SCH (22:51)
[2016-12-28 08:00] VITALS: BP 129/82
[2016-12-28] MEDS: HALOPERIDOL 5 MG TABLET PO PRN (09:22)
[2016-12-28] MEDS: LORazepam 2 MG TABLET PO PRN (09:22)
[2016-12-28] MEDS: OLANZapine 5 MG TABLET PO SCH (09:22)
[2016-12-28 16:38] VITALS: BP 124/93
[2016-12-28] MEDS: OLANZapine 10 MG TABLET PO SCH (20:46)
[2016-12-29] MEDS: LORazepam 2 MG TABLET PO PRN (07:59)
[2016-12-29] MEDS: OLANZapine 5 MG TABLET PO SCH (08:09)
[2016-12-29 08:45] VITALS: BP 96/56
[2016-12-29] MEDS: OLANZapine 10 MG TABLET PO SCH (21:01)
[2016-12-30 08:00] VITALS: BP 134/74
[2016-12-30] MEDS: LORazepam 2 MG TABLET PO PRN (08:16)
[2016-12-30] MEDS: OLANZapine 10 MG TABLET PO SCH ×2 (08:17→19:54)
[2016-12-30 16:57] VITALS: BP 128/79
[2016-12-31] MEDS: LORazepam 2 MG TABLET PO PRN (08:15)
[2016-12-31] MEDS: OLANZapine 10 MG TABLET PO SCH ×2 (08:15→20:09)
[2017-01-01] MEDS: LORazepam 2 MG TABLET PO PRN (08:14)
[2017-01-01] MEDS: OLANZapine 10 MG TABLET PO SCH ×2 (08:15→20:13)
[2017-01-01 17:20] VITALS: BP 114/68
[2017-01-02 08:00] VITALS: BP 122/76
[2017-01-02] MEDS: OLANZapine 10 MG TABLET PO SCH (08:10)
[2017-01-02] MEDS ORDERED: OLAN10TA3 PO (08:36)
== END 2017-01-02 12:15 | disposition home or self-care (01) | DRG 750 ==
LOC: EMS 18:33 → 3EC 12-23 15:15
DX: F25.0 Schizoaffective disorder, bipolar type (principal); F22 Delusional disorders; E03.9 Hypothyroidism, unspecified; F41.9 Anxiety disorder, unspecified
CPT/HCPCS: 87081; 96372; 99291; G0480; J1200; J1630; J2060

== ENCOUNTER 2018-04-06 03:21 | Emergency (ER) | payer MEDICAID ==
[~2018-04-06] VITALS: Ht 167.6 cm; Wt 72.7 kg
[~2018-04-06 03:21] MED LIST changes: +OLAN10TA3 PO; -OLAN5TAB2 PO
[2018-04-06 03:28] VITALS: BP 143/96
== END 2018-04-06 05:24 | disposition left against medical advice (07) ==
LOC: EMS 03:22
DX: Z00.8 Encounter for other general examination (principal); Z53.21 Procedure and treatment not carried out due to patient leaving prior to being seen by health care provider

== ENCOUNTER 2018-04-30 09:08 | Inpatient (IN) | payer MEDICAID ==
[~2018-04-30] VITALS: Ht 167.6 cm; Wt 83.0 kg
[2018-04-30 10:54] LABS: BASOPHILS % (AUTO) 0.8 % (0.0-2.0); EOSINOPHILS % (AUTO) 7.3 % (1.0-6.0); HEMATOCRIT 40.2 % (41-53); HEMOGLOBIN 13.5 g/dL (13.5-17.5); LYMPHOCYTES # (AUTO) 1.6 K/uL (1.0-4.8); LYMPHOCYTES % (AUTO) 21.7 % (22.0-44.0); MEAN CORPUSCULAR HEMOGLOBIN 29.7 pg (26.0-34.0); MEAN CORPUSCULAR HGB CONC 33.6 G/dL (31.0-37.0); MEAN CORPUSCULAR VOLUME 88 fL (80-100); MONOCYTES # (AUTO) 0.7 K/uL (0.1-1.0); NEUTROPHILS # (AUTO) 4.5 K/uL (1.8-7.7); NEUTROPHILS % (AUTO) 61.2 % (40.0-70.0); PLATELET COUNT (AUTO) 187 K/uL (150-450); RED BLOOD CELL COUNT(AUTO) 4.55 MIL/uL (4.50-5.90); RED CELL DISTRIBUTION WIDTH 14.3 % (11.5-14.5)
[2018-04-30 11:20] LABS: ANION GAP 10 mmol/L (8-16); CALCIUM, TOTAL 8.8 mg/dL (8.8-10.5); CARBON DIOXIDE 25 mmol/L (22-29); CHLORIDE 105 mmol/L (98-107); CREATININE 0.75 mg/dL (0.60-1.30); GLOMERULAR FILTR. RATE CALC > 60 mL/min (>60); GLUCOSE,RANDOM 78 mg/dL (70-110); POTASSIUM 3.6 mmol/L (3.5-5.1); SODIUM SERUM 140 mmol/L (136-145); UREA NITROGEN, BLOOD 12 mg/dL (7-18)
[2018-04-30 11:26] LABS: ALANINE AMINOTRANSFERASE 30 U/L (12-78); ALBUMIN 3.3 g/dL (3.4-5.0); ALKALINE PHOSPHATASE 78 U/L (46-116); ASPARTATE AMINOTRANSFERASE 31 U/L (15-37); BILIRUBIN,TOTAL 0.3 mg/dL (0.1-1.0); TOTAL PROTEIN, SERUM 6.7 g/dL (6.4-8.2)
[2018-04-30] MEDS: LORazepam 2 MG TABLET PO PRN (19:30)
[2018-04-30] MEDS: HALOPERIDOL 5 MG TABLET PO PRN (19:30)
[2018-04-30 22:10] VITALS: BP 139/101
[2018-04-30] MEDS ORDERED: ACETAMINOPHEN 325 MG TABLET PO PRN (23:00)
[2018-04-30] MEDS ORDERED: IBUPROFEN 400 MG TABLET PO PRN (23:00)
[2018-04-30] MEDS ORDERED: MAG HYDROX/AL HYDROX/SIMETH ES 30 ML SUSPENSION UDCUP PO PRN (23:00)
[2018-04-30] MEDS ORDERED: DOCUSATE SODIUM 100 MG CAPSULE PO PRN (23:00)
[2018-04-30] MEDS ORDERED: ALBUTEROL SULFATE HFA 90 MCG/PUFF 8 GM INHALER IH PRN (23:00)
[2018-04-30] MEDS ORDERED: CloNIDine HCL 0.1 MG TABLET PO PRN (23:00)
[2018-04-30] MEDS ORDERED: NICOTINE 14 MG/24 HOUR PATCH TD PRN (23:00)
[2018-04-30] MEDS ORDERED: ONDANSETRON HCL 4 MG TABLET PO PRN (23:00)
[2018-04-30] MEDS ORDERED: MAGNESIUM HYDROXIDE SUSPENSION 30 ML UDCUP PO PRN (23:00)
[2018-04-30] MEDS ORDERED: PETROLATUM,WHITE 71 GM JELLY TP PRN (23:00)
[2018-04-30] MEDS ORDERED: LOPERAMIDE HCL 2 MG CAPSULE PO PRN (23:00)
[2018-04-30] MEDS ORDERED: GuaiFENesin/D-METHORPHAN [SUGAR-FREE] 200-20MG/10 ML SYRUP UDCUP PO PRN (23:00)
[2018-05-01] MEDS: OLANZapine 10 MG TABLET PO SCH ×2 (12:00→20:21)
[2018-05-01 16:00] VITALS: BP 133/80
[2018-05-01] MEDS: ZOLPIDEM TARTRATE 10 MG TABLET PO PRN (20:22)
[2018-05-02] MEDS: OLANZapine 10 MG TABLET PO SCH ×2 (08:38→21:00)
[2018-05-02] MEDS: LORazepam 2 MG TABLET PO PRN (16:56)
[2018-05-02] MEDS: HALOPERIDOL 5 MG TABLET PO PRN (17:14)
[2018-05-02] MEDS ORDERED: LORazepam 2 MG/ML VIAL IM ONE (18:15)
[2018-05-02] MEDS ORDERED: DiphenhydrAMINE HCL 50 MG/ML VIAL IM ONE (18:15)
[2018-05-02] MEDS ORDERED: HALOPERIDOL LACTATE 5 MG/ML VIAL IM ONE (18:15)
[2018-05-03] MEDS: OLANZapine 10 MG TABLET PO SCH ×2 (09:22→21:16)
[2018-05-03] MEDS: LORazepam 2 MG TABLET PO PRN ×2 (09:22→17:04)
[2018-05-03] MEDS: HALOPERIDOL 5 MG TABLET PO PRN ×2 (09:22→17:04)
[2018-05-04 02:40] VITALS: BP 132/82
[2018-05-04] MEDS: OLANZapine 10 MG TABLET PO SCH ×2 (08:43→20:12)
[2018-05-04] MEDS: LORazepam 2 MG TABLET PO PRN ×2 (13:09→17:09)
[2018-05-04] MEDS: HALOPERIDOL 5 MG TABLET PO PRN ×2 (13:09→17:09)
[2018-05-04 16:20] VITALS: BP 130/80
[2018-05-04] MEDS: ZOLPIDEM TARTRATE 10 MG TABLET PO PRN (20:12)
[2018-05-05] MEDS: OLANZapine 10 MG TABLET PO SCH ×2 (09:21→20:21)
[2018-05-05] MEDS: LORazepam 2 MG TABLET PO PRN ×2 (09:22→17:04)
[2018-05-05] MEDS: HALOPERIDOL 5 MG TABLET PO PRN ×2 (09:22→17:04)
[2018-05-06 00:10] VITALS: BP 111/66
[2018-05-06] MEDS ORDERED: LORazepam 2 MG/ML VIAL ONE (08:21)
[2018-05-06] MEDS ORDERED: HALOPERIDOL LACTATE 5 MG/ML VIAL ONE (08:22)
[2018-05-06] MEDS ORDERED: DiphenhydrAMINE HCL 50 MG/ML VIAL ONE (08:22)
[2018-05-06] MEDS: HALOPERIDOL 5 MG TABLET PO PRN ×2 (08:27→16:48)
[2018-05-06] MEDS: OLANZapine 10 MG TABLET PO SCH ×2 (08:27→20:42)
[2018-05-06] MEDS: LORazepam 2 MG TABLET PO PRN ×2 (08:27→16:48)
[2018-05-06] MEDS ORDERED: LORazepam 2 MG/ML VIAL IM ONE (08:30)
[2018-05-06] MEDS ORDERED: HALOPERIDOL LACTATE 5 MG/ML VIAL IM ONE (08:30)
[2018-05-06] MEDS ORDERED: DiphenhydrAMINE HCL 50 MG/ML VIAL IM ONE (08:30)
[2018-05-06 09:00] VITALS: BP 104/76
[2018-05-06 09:11] VITALS: BP 120/78
[2018-05-07] MEDS: HALOPERIDOL 5 MG TABLET PO PRN (08:59)
[2018-05-07] MEDS: LORazepam 2 MG TABLET PO PRN (08:59)
[2018-05-07] MEDS: OLANZapine 10 MG TABLET PO SCH ×2 (08:59→20:21)
[2018-05-07] MEDS: DIVALPROEX SODIUM 500 MG ER TABLET PO SCH (16:41)
[2018-05-07] MEDS: ZOLPIDEM TARTRATE 10 MG TABLET PO PRN (20:21)
[2018-05-08] MEDS: DIVALPROEX SODIUM 500 MG ER TABLET PO SCH ×2 (08:59→16:49)
[2018-05-08] MEDS: OLANZapine 10 MG TABLET PO SCH (09:00)
[2018-05-08] MEDS: LORazepam 2 MG TABLET PO PRN ×3 (12:18→20:52)
[2018-05-08] MEDS: HALOPERIDOL 5 MG TABLET PO PRN ×2 (12:18→16:49)
[2018-05-08] MEDS ORDERED: PALIPERIDONE 6 MG ER TABLET PO SCH (21:00)
[2018-05-09 08:06] VITALS: BP 123/81
[2018-05-09] MEDS: DIVALPROEX SODIUM 500 MG ER TABLET PO SCH ×2 (08:43→17:01)
[2018-05-09] MEDS: LORazepam 2 MG TABLET PO PRN (17:01)
[2018-05-09] MEDS ORDERED: LORazepam 2 MG/ML VIAL ONE (17:37)
[2018-05-09] MEDS ORDERED: DiphenhydrAMINE HCL 50 MG/ML VIAL ONE (17:37)
[2018-05-09] MEDS ORDERED: HALOPERIDOL LACTATE 5 MG/ML VIAL ONE (17:37)
[2018-05-09] MEDS ORDERED: DiphenhydrAMINE HCL 50 MG/ML VIAL IM ONE (17:45)
[2018-05-09] MEDS ORDERED: HALOPERIDOL LACTATE 5 MG/ML VIAL IM ONE (17:45)
[2018-05-09] MEDS ORDERED: LORazepam 2 MG/ML VIAL IM ONE (17:45)
[2018-05-09] MEDS: PALIPERIDONE 6 MG ER TABLET PO SCH (21:00)
[2018-05-10 02:51] VITALS: BP 119/75
[2018-05-10] MEDS: HALOPERIDOL 5 MG TABLET PO PRN ×2 (08:30→16:26)
[2018-05-10] MEDS: DIVALPROEX SODIUM 500 MG ER TABLET PO SCH ×2 (08:30→16:26)
[2018-05-10] MEDS: LORazepam 2 MG TABLET PO PRN ×2 (08:30→16:26)
[2018-05-10 16:18] VITALS: BP 140/81
[2018-05-10] MEDS: ZOLPIDEM TARTRATE 10 MG TABLET PO PRN (20:38)
[2018-05-10] MEDS: PALIPERIDONE 6 MG ER TABLET PO SCH (20:38)
[2018-05-11 06:52] VITALS: BP 133/86
[2018-05-11] MEDS: DIVALPROEX SODIUM 500 MG ER TABLET PO SCH (08:41)
[2018-05-11 09:06] VITALS: BP 123/63
[2018-05-11] MEDS ORDERED: VALPROIC ACID 250 MG/5 ML SYRUP UDCUP PO ONE (11:00)
[2018-05-11 16:00] VITALS: BP 137/73
[2018-05-11] MEDS: LORazepam 2 MG TABLET PO PRN (16:15)
[2018-05-11] MEDS: VALPROIC ACID 250 MG/5 ML SYRUP UDCUP PO SCH (16:15)
[2018-05-11] MEDS: HALOPERIDOL 5 MG TABLET PO PRN (16:15)
[2018-05-11] MEDS: PALIPERIDONE 6 MG ER TABLET PO SCH (20:24)
[2018-05-12] MEDS: LORazepam 2 MG TABLET PO PRN ×2 (09:21→16:38)
[2018-05-12] MEDS: HALOPERIDOL 5 MG TABLET PO PRN ×2 (09:21→16:38)
[2018-05-12] MEDS: VALPROIC ACID 250 MG/5 ML SYRUP UDCUP PO SCH ×2 (09:21→16:38)
[2018-05-12 09:35] VITALS: BP 111/68
[2018-05-12] MEDS: ZOLPIDEM TARTRATE 10 MG TABLET PO PRN (20:21)
[2018-05-12] MEDS: PALIPERIDONE 6 MG ER TABLET PO SCH (20:21)
[2018-05-13] MEDS: VALPROIC ACID 250 MG/5 ML SYRUP UDCUP PO SCH ×2 (08:55→16:34)
[2018-05-13] MEDS: LORazepam 2 MG TABLET PO PRN (16:34)
[2018-05-13] MEDS: PALIPERIDONE 6 MG ER TABLET PO SCH (20:31)
[2018-05-14] MEDS: VALPROIC ACID 250 MG/5 ML SYRUP UDCUP PO SCH ×2 (08:48→16:36)
[2018-05-14 08:57] VITALS: BP 126/68
[2018-05-14] MEDS ORDERED: PALIPERIDONE PALMITATE 234 MG/1.5 ML SYRINGE IM ONE (16:00)
[2018-05-14] MEDS: LORazepam 2 MG TABLET PO PRN (16:36)
[2018-05-14 17:33] VITALS: BP 118/68
[2018-05-14] MEDS: PALIPERIDONE 6 MG ER TABLET PO SCH (20:29)
[2018-05-15 00:12] VITALS: BP 118/71
[2018-05-15] MEDS: ZOLPIDEM TARTRATE 10 MG TABLET PO PRN ×2 (00:15→20:29)
[2018-05-15 08:24] VITALS: BP 123/67
[2018-05-15] MEDS: VALPROIC ACID 250 MG/5 ML SYRUP UDCUP PO SCH ×2 (08:41→16:03)
[2018-05-15 16:00] VITALS: BP 134/88
[2018-05-15] MEDS: LORazepam 2 MG TABLET PO PRN (16:05)
[2018-05-15] MEDS: HALOPERIDOL 5 MG TABLET PO PRN (16:05)
[2018-05-15] MEDS: PALIPERIDONE 6 MG ER TABLET PO SCH (20:29)
[2018-05-16 06:58] VITALS: BP 105/61
[2018-05-16 08:18] VITALS: BP 119/81
[2018-05-16] MEDS: VALPROIC ACID 250 MG/5 ML SYRUP UDCUP PO SCH (08:50)
[2018-05-16] MEDS ORDERED: DIVA-78 PO (12:10)
[2018-05-16] MEDS ORDERED: PALI234D IM (12:11)
== END 2018-05-16 13:15 | disposition home or self-care (01) | DRG 750 ==
LOC: EMS 09:11 → B3A 20:20
PROVIDERS: ADMIT Psychiatry & Neurology Psychiatry; ATTEND Psychiatry & Neurology Psychiatry
DX: F25.0 Schizoaffective disorder, bipolar type (principal); R45.851 Suicidal ideations; Z59.0 Homelessness; R45.87 Impulsiveness; R45.84 Anhedonia; F41.9 Anxiety disorder, unspecified; Z91.14 Patient's other noncompliance with medication regimen
CPT/HCPCS: 90686; G0480; J1200; J1630; J2060

== ENCOUNTER 2018-06-26 03:25 | Emergency (ER) | payer MEDICAID ==
[~2018-06-26] VITALS: Ht 167.6 cm; Wt 72.7 kg
[~2018-06-26 03:25] MED LIST changes: +DIVA-78 PO; -OLAN10TA3 PO; +PALI234D IM
[2018-06-26] MEDS ORDERED: IBUPROFEN 600 MG TABLET PO ONE (07:00)
[2018-06-26 10:44] VITALS: BP 121/54
== END 2018-06-26 12:14 | disposition home or self-care (01) ==
LOC: EMS 03:25
DX: M79.671 Pain in right foot (principal); F31.9 Bipolar disorder, unspecified; F20.9 Schizophrenia, unspecified; Z59.0 Homelessness